=== PATIENT | male | born 1960 | race Caucasian/White ===

== ENCOUNTER 2019-12-26 13:00 | Outpatient (CLI) | payer BC, MEDICARE ==
--- NOTE | 2019-12-26 14:13 | ULT ---
BILATERAL RENAL ULTRASOUND: Date: 12/26/2019 HISTORY: Chronic renal disease FINDINGS: Real-time imaging of the right and left kidneys performed. The kidneys are normal in size. The right kidney measures 12.0 cm. The left kidney measures 13.0 cm. No cysts, mass, or obstruction. Bladder re gion appears unremarkable. There is some mild post-void residual of 31 mL. Pre-void volume 688 mL. IMPRESSION: 1. Unremarkable appearing kidneys. 2. Very mild post-void residual. POS: ORSY
== END 2019-12-26 13:01 | disposition home or self-care (01) ==
LOC: BICULT 13:00
PROVIDERS: ATTEND Internal Medicine Nephrology
DX: N18.3 Chronic kidney disease, stage 3 (moderate) (principal)
CPT/HCPCS: 76770

== ENCOUNTER 2020-09-10 09:58 | Outpatient (CLI) | payer BC, MEDICARE | END 2020-09-10 09:59 | disposition home or self-care (01) | LOC: TBSIIMAG 09:58 | PROVIDERS: ATTEND Family Medicine | DX: M54.2 Cervicalgia (principal); M47.812 Spondylosis without myelopathy or radiculopathy, cervical region | CPT/HCPCS: 72040 ==

== ENCOUNTER 2020-11-22 10:44 | Outpatient (CLI) | payer BC, MEDICARE | END 2020-11-22 10:45 | disposition home or self-care (01) | LOC: TBSIIMAG 10:44 | PROVIDERS: ATTEND Family Medicine | DX: M54.16 Radiculopathy, lumbar region (principal); G89.4 Chronic pain syndrome; M48.061 Spinal stenosis, lumbar region without neurogenic claudication | CPT/HCPCS: 72148 ==

== ENCOUNTER 2021-01-15 09:42 | Outpatient (CLI) | payer BC, MEDICARE | END 2021-01-15 09:43 | disposition home or self-care (01) | LOC: BICRAD 09:42 | PROVIDERS: ATTEND Family Medicine | DX: M25.521 Pain in right elbow (principal); M25.522 Pain in left elbow; M19.022 Primary osteoarthritis, left elbow; M77.8 Other enthesopathies, not elsewhere classified ==

== ENCOUNTER 2023-12-09 15:15 | Outpatient (CLI) | payer BC, MEDICARE | END 2023-12-09 15:16 | disposition home or self-care (01) | LOC: BICMRI 15:15 | PROVIDERS: ATTEND Family Medicine | DX: M47.26 Other spondylosis with radiculopathy, lumbar region (principal); M48.061 Spinal stenosis, lumbar region without neurogenic claudication; M43.16 Spondylolisthesis, lumbar region | CPT/HCPCS: 72120; 72148 ==